=== PATIENT | male | born 1990 | race African-American/Black ===

== ENCOUNTER 2017-01-18 16:21 | Emergency (ER) | payer OTHER, SELFPAY ==
[~2017-01-18 16:21] MED LIST: /MOXI40TA PO; NO HISTORICAL MEDS; PERCOCET OR; SENO8.6T9 OR; albuterol MDI INH
[2017-01-18] MEDS ORDERED: ONDANSETRON 4MG/2ML VIAL (J2405) As Ordered ONE (18:16)
[2017-01-18] MEDS ORDERED: KETOROLAC 30 MG/ML VIAL (J1885) As Ordered ONE (18:16)
[2017-01-18 18:32] LABS: BASO % 0.2 % (0.0-1.0); EOS # 0.1 K/mm3 (0.0-0.50); EOS % 0.5 % (0.0-3.0); LARGE UNSTAINED CELL # 0.1 K/mm3 (0.0-0.4); LARGE UNSTAINED CELL % 0.8 % (0.0-4.0); LYMPH % 5.3 % (24.0-44.0); MEAN CORPUSCULAR HEMOGLOBIN 31.5 pg (27.0-33.0); MEAN CORPUSCULAR HGB CONC 34.1 g/dl (32.0-36.5); MEAN CORPUSCULAR VOLUME 92.5 fl (80.0-96.0); MONO # 1.1 K/mm3 (0.0-0.8); MONO % 6.3 % (0.0-5.0); NEUTROPHILS # 14.3 K/mm3 (1.8-7.7); NEUTROPHILS % 86.9 % (36.0-66.0); PLATELET COUNT, AUTOMATED 219 k/mm3 (150-450); RED CELL DISTRIBUTION WIDTH 11.7 % (11.5-14.5); WHITE BLOOD COUNT 16.5 K/mm3 (4.0-10.0)
[2017-01-18 18:36] LABS: CALCIUM OXALATE CRYSTALS LARGE
[2017-01-18 18:46] LABS: GLUCOSE, FASTING 111 MG/DL (70-105)
[2017-01-18 18:47] LABS: ALBUMIN 4.7 GM/DL (3.2-5.2); ALBUMIN/GLOBULIN RATIO 1.47 (1.00-1.93); ALKALINE PHOSPHATASE 57 U/L (45-117); ALT/SGPT 22 U/L (12-78); ANION GAP 11 MEQ/L (8-16); AST/SGOT 23 U/L (15-37); BILIRUBIN,DIRECT 0.2 MG/DL (0.0-0.2); BLOOD UREA NITROGEN 16 MG/DL (7-18); CARBON DIOXIDE LEVEL 25 MEQ/L (21-32); CHLORIDE LEVEL 103 MEQ/L (98-107); CREATININE FOR GFR 1.72 MG/DL (0.70-1.30); GLOMERULAR FILTRATION RATE > 60.0 (>60); POTASSIUM SERUM 3.4 MEQ/L (3.5-5.1); SODIUM LEVEL 139 MEQ/L (136-145); TOTAL PROTEIN 7.9 GM/DL (6.4-8.2)
--- NOTE | 2017-01-18 19:44 | REP ---
Clinical: Right flank pain. Comparison: None. Findings: Right kidney demonstrates edematous enlargement with hydroureteronephrosis which is likely secondary to obstruction by a distal ureteral calculus. However paucity of intraperitoneal fat and adjacent loops of bowel make distinction between scattered phleboliths and the actual obstructing calculus difficult to distinguish. Correlation with urinalysis is recommended. The left kidney/ureter appear relatively normal and there is no evidence for nephrolithiasis bilaterally. Liver, spleen, pancreas, gallbladder, and bilateral adrenal glands are normal for noncontrast examination. The enteric system is without obstruction or acute inflammatory process and a normal appendix is identified in the right lower quadrant. Collapsed bladder identified in the pelvis along with normal prostate/seminal vesicles and scattered phleboliths. No ascites. No free air. Abdominal aorta without aneurysm. Surrounding musculoskeletal structures are intact. Lung bases are clear. Impression: Edematous enlargement to the right kidney with hydroureteronephrosis. Actual obstructing calculus versus phlebolith cannot be distinguished due to paucity of intraperitoneal fat and surrounding loops of bowel making identification of the distal ureter nearly impossible. Signed by Woo Echevarria MD 01/18/2017 07:35 P
[2017-01-18] MEDS ORDERED: TAMSULOSIN 0.4 MG CAP As Ordered ONE (20:21)
[2017-01-18] MEDS ORDERED: NORCO 5/325MG TABLET (BULK) As Ordered ONE (20:21)
--- NOTE | 2017-01-18 20:40 | EDDOCDS ---
Nurse's Notes [facility] Name: Kenn Kumari Age: 26 yrs Sex: Male : 1990 Arrival Date: 01/18/2017 Time: 16:21 Bed I2 / M2 Private MD: Diagnosis: Calculus of ureter;Functional diarrhea Presentation: 01/18 16:28 Presenting complaint: Patient states: Patient reports woke up this morning with sharp jmb back pain and pain in his right lower side. Patient reports that pain radiates to testicular area. Risk factors: the patient reports not having a history of previous torsion. Adult Sepsis Screening: The patient does not have new or worsening altered mentation. Patient's respiratory rate is less than 22. Systolic blood pressure is greater than 100. Patient has a qSOFA score of 0- Negative Sepsis Screen. Suicide/Homicide risk assessment- the patient denies having any suicidal and/or homicidal ideations and does not present with any other emotional, behavioral or mental health complaints. 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 Transition of care: patient was not received from another setting of care. 16:28 Acuity: TAPAN Level 3 b 16:28 Method Of Arrival: Walkin/Carried/Asstd b Triage Assessment: 16:29 General: Appears in no apparent distress, Behavior is appropriate for age, cooperative. b Pain: Location: abdomen and pelvis Pain currently is 7 out of 10 on a pain scale. Pt Declines HIV testing. Neurological: Level of Consciousness is awake, alert, obeys commands, Oriented to person, place, time, Speech is normal, Facial symmetry appears normal, Facial symmetry: tongue is midline. Respiratory: Airway is patent Respiratory effort is even, unlabored, Respiratory pattern is regular, symmetrical. GI: Abdomen is non- distended. Derm: Skin is pink, warm & dry. Musculoskeletal: Range of motion intact in all extremities. Historical: - Allergies: No known drug Allergies; - Home Meds: 1. none - PMHx: none; - PSHx: none; - Social history: Smoking status: Patient uses tobacco products, heavy tobacco smoker. No barriers to communication noted, The patient speaks fluent German, Speaks appropriately for age. - Family history: Not pertinent. - : The pt / caregiver states he / she is not on anticoagulants. Home medication list is obtained from the patient. - Exposure Risk Screening:: None identified. Screenin:30 Screening information is obtained from the patient. Fall risk: No risks identified. js13 Assistance ADL's: requires no assistance with activities of daily living. Abuse/DV Screen: The patient / caregiver reports he/she is: not in a situation that causes fear, pain or injury. Nutritional screening: No deficits noted. Advance Directives: There is no active DNR order. home support is adequate. Assessment: 17:30 General: Appears in no apparent distress, comfortable, Behavior is appropriate for age, js13 cooperative. Pain: Location: abdomen. Neurological: Level of Consciousness is awake, alert. Respiratory: Airway is patent Respiratory effort is even, unlabored, Respiratory pattern is regular, symmetrical. GI: Abdomen is non- distended Abd is soft and non tender. Derm: Skin is normal. 18:26 General: Appears in no apparent distress, comfortable, Behavior is appropriate for age, kc3 cooperative. Pain: Location: abdomen. Neurological: Level of Consciousness is awake, alert, obeys commands, Oriented to person, place, time. Respiratory: Respiratory effort is even, unlabored. GI: Abdomen is non- distended Bowel sounds present X 4 quads. Abd is soft and non tender Reports diarrhea, nausea, vomiting. Derm: Skin is pink, warm & dry. Vital Signs: 16:24 BP 142 / 65 RA Sitting (auto/reg); Pulse 96; Resp 20; Temp 98.6; Pulse Ox 100% on R/A; d Weight 74.84 kg (R); Height 6 ft. 0 in. (182.88 cm); Pain 7/10; 20:35 BP 106 / 60; Pulse 95; Resp 16; Temp 97.8(O); Pulse Ox 96% on R/A; Pain 0/10; mf4 16:24 Body Mass Index 22.38 (74.84 kg, 182.88 cm) [facility] Vitals: 16:24 Log In Time: January 18, 2017 at 16:17. [facility] ED Course: 16:23 Patient visited by Zeyad Hawkins PCA. jrd 16:23 Patient moved to Waiting jrjuliet 16:26 Patient visited by Zeyad Hawkins PCA. jrd 16:26 Patient moved to Pre RCE jrd 16:29 Triage Initiated jmb 17:22 Patient moved to Triage 2 js13 17:30 The patient / caregiver is instructed regarding the plan of care and ED course. js13 17:31 Patient visited by Rossy Quinonez RN. js13 17:53 Mariano Granados PA is PHCP. mo1 17:53 Kim Tolbert MD is Attending Physician. mo1 17:59 Patient visited by Mariano Granados PA. mo1 18:02 Patient moved to I2 / M2 ar3 18:24 Inserted saline lock: 20 gauge in right antecubital area and blood collected. The kc3 patient tolerated the procedure well. 18:32 Patient visited by Joseline Fuentes RN. mk4 19:16 Patient visited by Joseline Fuentes RN. mk4 19:16 [facility] Payment Agreement was scanned into [email or web address] and attached to record. gjb 20:18 CT ABD & PELVIS: No Contrast Returned. EDMS 20:37 Discontinued lock. No procedures done that require assistance. mf4 Administered Medications: 18:25 Drug: NS 0.9% 1000 ml [sodium chloride 0.9 % intravenous solution] Route: IV; Rate: kc3 bolus; Site: right antecubital; 18:25 Drug: Ondansetron 4 mg [ondansetron HCl 2 mg/mL intravenous solution (2 mL)] Route: kc3 IVP; Site: right antecubital; 18:26 Drug: ketorolac 30 mg [ketorolac 30 mg/mL (1 mL) injection solution (1 mL)] Route: IVP; kc3 Site: right antecubital; 20:35 Drug: Tamsulosin 0.4 mg [tamsulosin 0.4 mg capsule (1 caps)] Route: PO; mf4 20:36 Drug: HYDROcodone-acetaminophen 4 pack- 1 packets [hydrocodone 5 mg-acetaminophen 325 mf4 mg tablet (1 tabs)] {Co-Signature: cynthia (Goldie Kramer LPN).} Route: PO; Order Results: Lab Order: Basic Metabolic Profile; SPEC'M 01/18/17 18:14 Test: GLUCOSE, FASTING; Value: 111; Range: 70-105; Abnormal: Above high normal; Units: MG/DL; Status: F Test: BLOOD UREA NITROGEN; Value: 16; Range: 7-18; Units: MG/DL; Status: F Test: CREATININE FOR GFR; Value: 1.72; Range: 0.70-1.30; Abnormal: Above high normal; Units: MG/DL; Status: F Test: GLOMERULAR FILTRATION RATE; Value: > 60.0; Range: >60; Status: F Test: SODIUM LEVEL; Value: 139; Range: 136-145; Units: MEQ/L; Status: F Test: POTASSIUM SERUM; Value: 3.4; Range: 3.5-5.1; Abnormal: Below low normal; Units: MEQ/L; Status: F Test: CHLORIDE LEVEL; Value: 103; Range: 98-107; Units: MEQ/L; Status: F Test: CARBON DIOXIDE LEVEL; Value: 25; Range: 21-32; Units: MEQ/L; Status: F Test: ANION GAP; Value: 11; Range: 8-16; Units: MEQ/L; Status: F Test: CALCIUM LEVEL; Value: 10.0; Range: 8.5-10.1; Units: MG/DL; Status: F Test Note: ; Units are mL/min/1.73 m2 Chronic Kidney Disease Staging per NKF: Stage I & II GFR >=60 Normal to Mildly Decreased Stage III GFR 30-59 Moderately Decreased Stage IV GFR 15-29 Severely Decreased Stage V GFR <15 Very Little GFR Left ESRD GFR <15 on MOVIE EDITOR Lab Order: CBC with Diff; SPEC'M 01/18/17 18:14 Test: WHITE BLOOD COUNT; Value: 16.5; Range: 4.0-10.0; Abnormal: Above high normal; Units: K/mm3; Status: F Test: RED BLOOD COUNT; Value: 5.26; Range: 4.30-6.10; Units: M/mm3; Status: F Test: HEMOGLOBIN; Value: 16.6; Range: 14.0-18.0; Units: g/dl; Status: F Test: HEMATOCRIT; Value: 48.7; Range: 42.0-52.0; Units: %; Status: F Test: MEAN CORPUSCULAR VOLUME; Value: 92.5; Range: 80.0-96.0; Units: fl; Status: F Test: MEAN CORPUSCULAR HEMOGLOBIN; Value: 31.5; Range: 27.0-33.0; Units: pg; Status: F Test: MEAN CORPUSCULAR HGB CONC; Value: 34.1; Range: 32.0-36.5; Units: g/dl; Status: F Test: RED CELL DISTRIBUTION WIDTH; Value: 11.7; Range: 11.5-14.5; Units: %; Status: F Test: PLATELET COUNT, AUTOMATED; Value: 219; Range: 150-450; Units: k/mm3; Status: F Test: NEUTROPHILS %; Value: 86.9; Range: 36.0-66.0; Abnormal: Above high normal; Units: %; Status: F Test: LYMPH %; Value: 5.3; Range: 24.0-44.0; Abnormal: Below low normal; Units: %; Status: F Test: MONO %; Value: 6.3; Range: 0.0-5.0; Abnormal: Above high normal; Units: %; Status: F Test: EOS %; Value: 0.5; Range: 0.0-3.0; Units: %; Status: F Test: BASO %; Value: 0.2; Range: 0.0-1.0; Units: %; Status: F Test: LARGE UNSTAINED CELL %; Value: 0.8; Range: 0.0-4.0; Units: %; Status: F Test: NEUTROPHILS #; Value: 14.3; Range: 1.8-7.7; Abnormal: Above high normal; Units: K/mm3; Status: F Test: LYMPH #; Value: 1.0; Range: 1.5-6.5; Abnormal: Below low normal; Units: K/mm3; Status: F Test: MONO #; Value: 1.1; Range: 0.0-0.8; Abnormal: Above high normal; Units: K/mm3; Status: F Test: EOS #; Value: 0.1; Range: 0.0-0.50; Units: K/mm3; Status: F Test: BASO #; Value: 0.0; Range: 0.0-0.2; Units: K/mm3; Status: F Test: LARGE UNSTAINED CELL #; Value: 0.1; Range: 0.0-0.4; Units: K/mm3; Status: F Lab Order: Lipase; SPEC'M 01/18/17 18:14 Test: LIPASE; Value: 118; Range: 73-393; Units: U/L; Status: F Lab Order: Liver Profile; [facility] 01/18/17 18:14 Test: AST/SGOT; Value: 23; Range: 15-37; Units: U/L; Status: F Test: ALT/SGPT; Value: 22; Range: 12-78; Units: U/L; Status: F Test: ALKALINE PHOSPHATASE; Value: 57; Range: 45-117; Units: U/L; Status: F Test: BILIRUBIN,TOTAL; Value: 1.0; Range: 0.2-1.0; Units: MG/DL; Status: F Test: BILIRUBIN,DIRECT; Value: 0.2; Range: 0.0-0.2; Units: MG/DL; Status: F Test: TOTAL PROTEIN; Value: 7.9; Range: 6.4-8.2; Units: GM/DL; Status: F Test: ALBUMIN; Value: 4.7; Range: 3.2-5.2; Units: GM/DL; Status: F Test: ALBUMIN/GLOBULIN RATIO; Value: 1.47; Range: 1.00-1.93; Status: F Lab Order: Urinalysis; [facility] 01/18/17 18:02 Test: APPEARANCE, URINE; Value: CLOUDY; Range: CLEAR; Abnormal: Above high normal; Status: F Test: COLOR, URINE; Value: YELLOW; Range: YELLOW; Status: F Test: PH,URINE; Value: 6.0; Range: 5.0-9.0; Units: UNITS; Status: F Test: SPECIFIC GRAVITY URINE AUTO; Value: 1.031; Range: 1.002-1.035; Status: F Test: PROTEIN, URINE AUTO; Value: 1+; Range: NEGATIVE; Abnormal: Above high normal; Units: mg/dL; Status: F Test: GLUCOSE, URINE (UA) AUTO; Value: NEGATIVE; Range: NEGATIVE; Units: mg/dL; Status: F Test: KETONE, URINE AUTO; Value: 2+; Range: NEGATIVE; Abnormal: Above high normal; Units: mg/dL; Status: F Test: UROBILINOGEN, URINE AUTO; Value: 0.2; Range: 0.0-2.0; Units: mg/dL; Status: F Test: BILIRUBIN, URINE AUTO; Value: NEGATIVE; Range: NEGATIVE; Status: F Test: NITRITE, URINE AUTO; Value: NEGATIVE; Range: NEGATIVE; Status: F Test: LEUKOCYTE ESTERASE, URINE AUTO; Value: NEGATIVE; Range: NEGATIVE; Status: F Test: BLOOD, URINE BLOOD; Value: 1+; Range: NEGATIVE; Abnormal: Above high normal; Status: F Test: WBC, URINE AUTO; Value: 3; Range: 0-3; Units: /HPF; Status: F Test: RBC, URINE AUTO; Value: 6; Range: 0-3; Abnormal: Above high normal; Units: /HPF; Status: F Test: BACTERIA, URINE AUTO; Value: 1+; Range: NEGATIVE; Abnormal: Above high normal; Status: F Test: SQUAMOUS EPITHELIAL CELL UR AU; Value: 1; Range: 0-6; Units: /HPF; Status: F Test: MUCUS, URINE; Value: LARGE; Range: NEGATIVE; Status: F Test: HYALINE CAST, URINE AUTO; Value: 0; Range: 0-1; Units: /LPF; Status: F Test: CALCIUM OXALATE CRYSTALS; Value: LARGE; Range: NONE; Status: F Radiology Order: CT ABD & PELVIS: No Contrast Test: CT ABD & PELVIS: No Contrast REASON FOR EXAMINATION: Renal colic; Clinical: Right flank pain.; ; Comparison: None.; ; Findings:; Right kidney demonstrates edematous enlargement with hydroureteronephrosis which; is likely secondary to obstruction by a distal ureteral calculus. However; paucity of intraperitoneal fat and adjacent loops of bowel make distinction; between scattered phleboliths and the actual obstructing calculus difficult to; distinguish. Correlation with urinalysis is recommended. The left kidney/ureter; appear relatively normal and there is no evidence for nephrolithiasis; bilaterally.; ; Liver, spleen, pancreas, gallbladder, and bilateral adrenal glands are normal for; noncontrast examination. The enteric system is without obstruction or acute; inflammatory process and a normal appendix is identified in the right lower; quadrant. Collapsed bladder identified in the pelvis along with normal; prostate/seminal vesicles and scattered phleboliths. No ascites. No free air.; Abdominal aorta without aneurysm. Surrounding musculoskeletal structures are; intact. Lung bases are clear.; ; Impression:; Edematous enlargement to the right kidney with hydroureteronephrosis. Actual; obstructing calculus versus phlebolith cannot be distinguished due to paucity of; intraperitoneal fat and surrounding loops of bowel making identification of the; distal ureter nearly impossible.; ; ; Signed by; Woo Echevarria MD 01/18/2017 07:35 P; Outcome: 20:14 Discharge ordered by Provider. mo1 20:37 Discharge Assessment: Patient awake, alert and oriented x 3. No cognitive and/or mf4 functional deficits noted. Patient verbalized understanding of disposition instructions. patient administered narcotics - no. The following High Risk Discharge criteria are identified: None. Discharged to home ambulatory, with friend. Condition: stable Condition: improved. Discharge instructions given to patient, Instructed on discharge instructions, follow up and referral plans. medication usage, Demonstrated understanding of medications, Prescriptions given X efiled to [facility]. CT Study completed. Property sent home with patient. 20:39 Patient left the ED. mf4 Signatures: Dispatcher [employer] EDMS Tejal Ying, HIGH SCHOOL SOCIAL STUDIES TEACHER HIGH SCHOOL SOCIAL STUDIES TEACHER ar3 Jose Middleton,LAURA DICE MANAGER mf4 Rossy Quinonez,RN RN js13 Mariano Granados PA PA mo1 Paresh VuongRN RN Joseline Pierce RN RN mk4 Zeyad Hawkins, HIGH SCHOOL SOCIAL STUDIES TEACHER HIGH SCHOOL SOCIAL STUDIES TEACHER Cesilia GiordanoRN RN alissa3 Caroline Paredes LPN [facility] Corrections: (The following items were deleted from the chart) 18:27 18:24 Inserted saline lock: kc3 kc3 MTDD
--- NOTE | 2017-01-18 20:40 | EDDOCDS ---
Physician Documentation [facility] Name: Kenn Kumari Age: 26 yrs Sex: Male : 1990 Arrival Date: 01/18/2017 Time: 16:21 Bed I2 / M2 Private MD: Disposition: 01/18/17 20:14 Discharged to Home/Self Care. Impression: Calculus of ureter, Functional diarrhea. - Condition is Stable. - Discharge Instructions: Food Choices to Help Relieve Diarrhea, Adult, Dehydration, Adult, Kidney Stones. - Prescriptions for [place] 5- 325 mg Oral Tablet - take 1 tablet by ORAL route every 6 hours As needed MDD: 4 tabs; 20 tablet. Flomax 0.4 mg Oral Capsule, Sust. Release 24 hr - take 1 capsule by ORAL route once daily 1/2 hour following the same meal each day; 30 capsule. ZOFRAN ODT 4 mg - dissolve 1 tablet by ORAL route 4 times per day As needed do not chew, do not swallow whole; 10 tablet. - Medication Reconciliation, Local Pharmacy Hours, Work Release Form - 3 day form. - Follow up: Private Physician; When: Call to arrange an appointment; Reason: Recheck today's complaints, Continuance of care. - Problem is new. - Symptoms have improved. Historical: - Allergies: No known drug Allergies; - Home Meds: 1. none - PMHx: none; - PSHx: none; - Social history: Smoking status: Patient uses tobacco products, heavy tobacco smoker. No barriers to communication noted, The patient speaks fluent [place], Speaks appropriately for age. - Family history: Not pertinent. - : The pt / caregiver states he / she is not on anticoagulants. Home medication list is obtained from the patient. - Exposure Risk Screening:: None identified. Vital Signs: 01/18 16:24 BP 142 / 65 RA Sitting (auto/reg); Pulse 96; Resp 20; Temp 98.6; Pulse Ox 100% on R/A; jrd Weight 74.84 kg / 164.99 lbs (R); Height 6 ft. 0 in. (182.88 cm); Pain 7/10; 20:35 BP 106 / 60; Pulse 95; Resp 16; Temp 97.8(O); Pulse Ox 96% on R/A; Pain 0/10; mf4 16:24 Body Mass Index 22.38 (74.84 kg, 182.88 cm) jrd MDM: 17:59 NS 0.9% 1000 ml IV at bolus once ordered. mo1 17:59 Ondansetron 4 mg IVP once ordered. mo1 17:59 ketorolac 30 mg IVP once ordered. mo1 17:59 IV Saline Lock ordered. mo1 17:59 Undress patient appropriately for examination ordered. mo1 18:00 Basic Metabolic Profile Ordered. EDMS 18:00 CBC with Diff Ordered. EDMS 18:00 Lipase Ordered. EDMS 18:00 Liver Profile Ordered. EDMS 18:00 Urinalysis Ordered. EDMS 18:00 NOTHING BY MOUTH+DIET ordered. EDMS 18:46 CBC with Diff Reviewed. mo1 18:46 Urinalysis Reviewed. mo1 18:52 Basic Metabolic Profile Reviewed. mo1 18:52 Lipase Reviewed. mo1 18:53 Liver Profile Reviewed. mo1 18:58 Financial registration complete. gjb 19:08 CT ABD & PELVIS: No Contrast Ordered. EDMS 19:16 [facility] Payment Agreement was scanned into [employer] and attached to record. gjb 20:14 Tamsulosin Extended Release 24 hour Capsule 0.4 mg PO once ordered. mo1 20:14 HYDROcodone-acetaminophen 4 pack- 5 mg-325 mg 1 packets PO Per package directions; mo1 Dispense with patient. 1 po q4h prn for pain ordered. Administered Medications: 18:25 Drug: NS 0.9% 1000 ml [sodium chloride 0.9 % intravenous solution] Route: IV; Rate: kc3 bolus; Site: right antecubital; 18:25 Drug: Ondansetron 4 mg [ondansetron HCl 2 mg/mL intravenous solution (2 mL)] Route: kc3 IVP; Site: right antecubital; 18:26 Drug: ketorolac 30 mg [ketorolac 30 mg/mL (1 mL) injection solution (1 mL)] Route: IVP; kc3 Site: right antecubital; 20:35 Drug: Tamsulosin 0.4 mg [tamsulosin 0.4 mg capsule (1 caps)] Route: PO; mf4 20:36 Drug: HYDROcodone-acetaminophen 4 pack- 1 packets [hydrocodone 5 mg-acetaminophen 325 mf4 mg tablet (1 tabs)] {Co-Signature: slm (Goldie Kramer LOGISTICS AND PLANNING MANAGER).} Route: PO; Signatures: Dispatcher [employer] EDMS Jose Middleton,LAURA SANCHEZ mf4 Rossy Quinonez,RN RN js13 Mariano Granados PA PA mo1 Paresh Vuong RN RN jmb Beck, Gabriela gjb Crane, Kelsi RN kc3 Goldie marie The chart was reviewed and I authenticate all verbal orders and agree with the evaluation and treatment provided.Corrections: (The following items were deleted from the chart) 19:10 18:57 CT ABD & PELVIS WITH CONTRAST+CT ordered. EDMS EDMS Attachments: 19:16 [facility] [place] Agreement loyda MTDD
--- NOTE | 2017-01-20 21:41 | EDDOCDS ---
Physician Documentation [facility] Name: Kenn Kumari Age: 26 yrs Sex: Male : 1990 Arrival Date: 01/18/2017 Time: 16:21 Bed I2 / M2 Private MD: Disposition: 01/18/17 20:14 Discharged to Home/Self Care. Impression: Calculus of ureter, Functional diarrhea. - Condition is Stable. - Discharge Instructions: Food Choices to Help Relieve Diarrhea, Adult, Dehydration, Adult, Kidney Stones. - Prescriptions for [place] 5- 325 mg Oral Tablet - take 1 tablet by ORAL route every 6 hours As needed MDD: 4 tabs; 20 tablet. Flomax 0.4 mg Oral Capsule, Sust. Release 24 hr - take 1 capsule by ORAL route once daily 1/2 hour following the same meal each day; 30 capsule. ZOFRAN ODT 4 mg - dissolve 1 tablet by ORAL route 4 times per day As needed do not chew, do not swallow whole; 10 tablet. - Medication Reconciliation, Local Pharmacy Hours, Work Release Form - 3 day form. - Follow up: Private Physician; When: Call to arrange an appointment; Reason: Recheck today's complaints, Continuance of care. - Problem is new. - Symptoms have improved. Historical: - Allergies: No known drug Allergies; - Home Meds: 1. none - PMHx: none; - PSHx: none; - Social history: Smoking status: Patient uses tobacco products, heavy tobacco smoker. No barriers to communication noted, The patient speaks fluent [place]une[place], Speaks appropriately for age. - Family history: Not pertinent. - : The pt / caregiver states he / she is not on anticoagulants. Home medication list is obtained from the patient. - Exposure Risk Screening:: None identified. Vital Signs: 01/18 16:24 BP 142 / 65 RA Sitting (auto/reg); Pulse 96; Resp 20; Temp 98.6; Pulse Ox 100% on R/A; jrd Weight 74.84 kg / 164.99 lbs (R); Height 6 ft. 0 in. (182.88 cm); Pain 7/10; 20:35 BP 106 / 60; Pulse 95; Resp 16; Temp 97.8(O); Pulse Ox 96% on R/A; Pain 0/10; mf4 16:24 Body Mass Index 22.38 (74.84 kg, 182.88 cm) jrd MDM: 17:59 NS 0.9% 1000 ml IV at bolus once ordered. mo1 17:59 Ondansetron 4 mg IVP once ordered. mo1 17:59 ketorolac 30 mg IVP once ordered. mo1 17:59 IV Saline Lock ordered. mo1 17:59 Undress patient appropriately for examination ordered. mo1 18:00 Basic Metabolic Profile Ordered. EDMS 18:00 CBC with Diff Ordered. EDMS 18:00 Lipase Ordered. EDMS 18:00 Liver Profile Ordered. EDMS 18:00 Urinalysis Ordered. EDMS 18:00 NOTHING BY MOUTH+DIET ordered. EDMS 18:46 CBC with Diff Reviewed. mo1 18:46 Urinalysis Reviewed. mo1 18:52 Basic Metabolic Profile Reviewed. mo1 18:52 Lipase Reviewed. mo1 18:53 Liver Profile Reviewed. mo1 18:58 Financial registration complete. gjb 19:08 CT ABD & PELVIS: No Contrast Ordered. EDMS 19:16 [facility] Payment Agreement was scanned into [employer] and attached to record. gjb 20:14 Tamsulosin Extended Release 24 hour Capsule 0.4 mg PO once ordered. mo1 20:14 HYDROcodone-acetaminophen 4 pack- 5 mg-325 mg 1 packets PO Per package directions; mo1 Dispense with patient. 1 po q4h prn for pain ordered. 01/19 10:18 T-Sheet-- Draft Copy was scanned into [employer] and attached to record. gb 10:19 Radiology Report was scanned into [employer] and attached to record. gb Administered Medications: 01/18 18:25 Drug: NS 0.9% 1000 ml [sodium chloride 0.9 % intravenous solution] Route: IV; Rate: kc3 bolus; Site: right antecubital; 18:25 Drug: Ondansetron 4 mg [ondansetron HCl 2 mg/mL intravenous solution (2 mL)] Route: kc3 IVP; Site: right antecubital; 18:26 Drug: ketorolac 30 mg [ketorolac 30 mg/mL (1 mL) injection solution (1 mL)] Route: IVP; kc3 Site: right antecubital; 20:35 Drug: Tamsulosin 0.4 mg [tamsulosin 0.4 mg capsule (1 caps)] Route: PO; mf4 20:36 Drug: HYDROcodone-acetaminophen 4 pack- 1 packets [hydrocodone 5 mg-acetaminophen 325 mf4 mg tablet (1 tabs)] {Co-Signature: slm (Goldie Kramer LPN).} Route: PO; Signatures: Dispatcher [employer] EDMS Brooke Sanchez, Reg Reg gb Jose Middleton,LAURA HOP GROWER mf4 Rossy Quinonez,RN RN js13 Mariano Granados PA PA mo1 Paresh Vuong, RN RN Caroline Carroll Kelsi RN kc3 Goldie marie The chart was reviewed and I authenticate all verbal orders and agree with the evaluation and treatment provided.Corrections: (The following items were deleted from the chart) 19:10 18:57 CT ABD & PELVIS WITH CONTRAST+CT ordered. EDMS EDMS Attachments: 19:16 [facility] Payment Agreement [facility] 01/19 10:18 T-Sheet-- Draft Copy gb Chart Complete MTDD
--- NOTE | 2017-01-20 21:41 | EDDOCDS ---
Nurse's Notes [facility] Name: Kenn Kumari Age: 26 yrs Sex: Male : 1990 Arrival Date: 01/18/2017 Time: 16:21 Bed I2 / M2 Private MD: Diagnosis: Calculus of ureter;Functional diarrhea Presentation: 01/18 16:28 Presenting complaint: Patient states: Patient reports woke up this morning with sharp jmb back pain and pain in his right lower side. Patient reports that pain radiates to testicular area. Risk factors: the patient reports not having a history of previous torsion. Adult Sepsis Screening: The patient does not have new or worsening altered mentation. Patient's respiratory rate is less than 22. Systolic blood pressure is greater than 100. Patient has a qSOFA score of 0- Negative Sepsis Screen. Suicide/Homicide risk assessment- the patient denies having any suicidal and/or homicidal ideations and does not present with any other emotional, behavioral or mental health complaints. Status: Patient is not a room service clerk or dependent. Transition of care: patient was not received from another setting of care. 16:28 Acuity: TAPAN Level 3 b 16:28 Method Of Arrival: Walkin/Carried/Asstd b Triage Assessment: 16:29 General: Appears in no apparent distress, Behavior is appropriate for age, cooperative. b Pain: Location: abdomen and pelvis Pain currently is 7 out of 10 on a pain scale. Pt Declines HIV testing. Neurological: Level of Consciousness is awake, alert, obeys commands, Oriented to person, place, time, Speech is normal, Facial symmetry appears normal, Facial symmetry: tongue is midline. Respiratory: Airway is patent Respiratory effort is even, unlabored, Respiratory pattern is regular, symmetrical. GI: Abdomen is non- distended. Derm: Skin is pink, warm & dry. Musculoskeletal: Range of motion intact in all extremities. Historical: - Allergies: No known drug Allergies; - Home Meds: 1. none - PMHx: none; - PSHx: none; - Social history: Smoking status: Patient uses tobacco products, heavy tobacco smoker. No barriers to communication noted, The patient speaks fluent Syriac, Speaks appropriately for age. - Family history: Not pertinent. - : The pt / caregiver states he / she is not on anticoagulants. Home medication list is obtained from the patient. - Exposure Risk Screening:: None identified. Screenin:30 Screening information is obtained from the patient. Fall risk: No risks identified. js13 Assistance ADL's: requires no assistance with activities of daily living. Abuse/DV Screen: The patient / caregiver reports he/she is: not in a situation that causes fear, pain or injury. Nutritional screening: No deficits noted. Advance Directives: There is no active DNR order. home support is adequate. Assessment: 17:30 General: Appears in no apparent distress, comfortable, Behavior is appropriate for age, js13 cooperative. Pain: Location: abdomen. Neurological: Level of Consciousness is awake, alert. Respiratory: Airway is patent Respiratory effort is even, unlabored, Respiratory pattern is regular, symmetrical. GI: Abdomen is non- distended Abd is soft and non tender. Derm: Skin is normal. 18:26 General: Appears in no apparent distress, comfortable, Behavior is appropriate for age, kc3 cooperative. Pain: Location: abdomen. Neurological: Level of Consciousness is awake, alert, obeys commands, Oriented to person, place, time. Respiratory: Respiratory effort is even, unlabored. GI: Abdomen is non- distended Bowel sounds present X 4 quads. Abd is soft and non tender Reports diarrhea, nausea, vomiting. Derm: Skin is pink, warm & dry. Vital Signs: 16:24 BP 142 / 65 RA Sitting (auto/reg); Pulse 96; Resp 20; Temp 98.6; Pulse Ox 100% on R/A; d Weight 74.84 kg (R); Height 6 ft. 0 in. (182.88 cm); Pain 7/10; 20:35 BP 106 / 60; Pulse 95; Resp 16; Temp 97.8(O); Pulse Ox 96% on R/A; Pain 0/10; mf4 16:24 Body Mass Index 22.38 (74.84 kg, 182.88 cm) [facility] Vitals: 16:24 Log In Time: January 18, 2017 at 16:17. [facility] ED Course: 16:23 Patient visited by Zeyad Hawkins PCA. jrd 16:23 Patient moved to Waiting jrjuliet 16:26 Patient visited by Zeyad Hawkins PCA. jrd 16:26 Patient moved to Pre RCE jrd 16:29 Triage Initiated jmb 17:22 Patient moved to Triage 2 js13 17:30 The patient / caregiver is instructed regarding the plan of care and ED course. js13 17:31 Patient visited by Rossy Quinonez RN. js13 17:53 Mariano Granados PA is PHCP. mo1 17:53 Kim Tolbert MD is Attending Physician. mo1 17:59 Patient visited by Mariano Granados PA. mo1 18:02 Patient moved to I2 / M2 ar3 18:24 Inserted saline lock: 20 gauge in right antecubital area and blood collected. The kc3 patient tolerated the procedure well. 18:32 Patient visited by Joseline Fuentes RN. mk4 19:16 Patient visited by Joseline Fuentes RN. mk4 19:16 [facility] Payment Agreement was scanned into [employer] and attached to record. gjb 20:18 CT ABD & PELVIS: No Contrast Returned. EDMS 20:37 Discontinued lock. No procedures done that require assistance. mf4 01/19 10:18 T-Sheet-- Draft Copy was scanned into [employer] and attached to record. gb 10:19 Radiology Report was scanned into [employer] and attached to record. gb Administered Medications: 01/18 18:25 Drug: NS 0.9% 1000 ml [sodium chloride 0.9 % intravenous solution] Route: IV; Rate: kc3 bolus; Site: right antecubital; 18:25 Drug: Ondansetron 4 mg [ondansetron HCl 2 mg/mL intravenous solution (2 mL)] Route: kc3 IVP; Site: right antecubital; 18:26 Drug: ketorolac 30 mg [ketorolac 30 mg/mL (1 mL) injection solution (1 mL)] Route: IVP; kc3 Site: right antecubital; 20:35 Drug: Tamsulosin 0.4 mg [tamsulosin 0.4 mg capsule (1 caps)] Route: PO; mf4 20:36 Drug: HYDROcodone-acetaminophen 4 pack- 1 packets [hydrocodone 5 mg-acetaminophen 325 mf4 mg tablet (1 tabs)] {Co-Signature: slm (Goldie Kramer LPN).} Route: PO; Order Results: Lab Order: Basic Metabolic Profile; SPEC'M 01/18/17 18:14 Test: GLUCOSE, FASTING; Value: 111; Range: 70-105; Abnormal: Above high normal; Units: MG/DL; Status: F Test: BLOOD UREA NITROGEN; Value: 16; Range: 7-18; Units: MG/DL; Status: F Test: CREATININE FOR GFR; Value: 1.72; Range: 0.70-1.30; Abnormal: Above high normal; Units: MG/DL; Status: F Test: GLOMERULAR FILTRATION RATE; Value: > 60.0; Range: >60; Status: F Test: SODIUM LEVEL; Value: 139; Range: 136-145; Units: MEQ/L; Status: F Test: POTASSIUM SERUM; Value: 3.4; Range: 3.5-5.1; Abnormal: Below low normal; Units: MEQ/L; Status: F Test: CHLORIDE LEVEL; Value: 103; Range: 98-107; Units: MEQ/L; Status: F Test: CARBON DIOXIDE LEVEL; Value: 25; Range: 21-32; Units: MEQ/L; Status: F Test: ANION GAP; Value: 11; Range: 8-16; Units: MEQ/L; Status: F Test: CALCIUM LEVEL; Value: 10.0; Range: 8.5-10.1; Units: MG/DL; Status: F Test Note: ; Units are mL/min/1.73 m2 Chronic Kidney Disease Staging per NKF: Stage I & II GFR >=60 Normal to Mildly Decreased Stage III GFR 30-59 Moderately Decreased Stage IV GFR 15-29 Severely Decreased Stage V GFR <15 Very Little GFR Left ESRD GFR <15 on [employer] Lab Order: CBC with Diff; SPEC'M 01/18/17 18:14 Test: WHITE BLOOD COUNT; Value: 16.5; Range: 4.0-10.0; Abnormal: Above high normal; Units: K/mm3; Status: F Test: RED BLOOD COUNT; Value: 5.26; Range: 4.30-6.10; Units: M/mm3; Status: F Test: HEMOGLOBIN; Value: 16.6; Range: 14.0-18.0; Units: g/dl; Status: F Test: HEMATOCRIT; Value: 48.7; Range: 42.0-52.0; Units: %; Status: F Test: MEAN CORPUSCULAR VOLUME; Value: 92.5; Range: 80.0-96.0; Units: fl; Status: F Test: MEAN CORPUSCULAR HEMOGLOBIN; Value: 31.5; Range: 27.0-33.0; Units: pg; Status: F Test: MEAN CORPUSCULAR HGB CONC; Value: 34.1; Range: 32.0-36.5; Units: g/dl; Status: F Test: RED CELL DISTRIBUTION WIDTH; Value: 11.7; Range: 11.5-14.5; Units: %; Status: F Test: PLATELET COUNT, AUTOMATED; Value: 219; Range: 150-450; Units: k/mm3; Status: F Test: NEUTROPHILS %; Value: 86.9; Range: 36.0-66.0; Abnormal: Above high normal; Units: %; Status: F Test: LYMPH %; Value: 5.3; Range: 24.0-44.0; Abnormal: Below low normal; Units: %; Status: F Test: MONO %; Value: 6.3; Range: 0.0-5.0; Abnormal: Above high normal; Units: %; Status: F Test: EOS %; Value: 0.5; Range: 0.0-3.0; Units: %; Status: F Test: BASO %; Value: 0.2; Range: 0.0-1.0; Units: %; Status: F Test: LARGE UNSTAINED CELL %; Value: 0.8; Range: 0.0-4.0; Units: %; Status: F Test: NEUTROPHILS #; Value: 14.3; Range: 1.8-7.7; Abnormal: Above high normal; Units: K/mm3; Status: F Test: LYMPH #; Value: 1.0; Range: 1.5-6.5; Abnormal: Below low normal; Units: K/mm3; Status: F Test: MONO #; Value: 1.1; Range: 0.0-0.8; Abnormal: Above high normal; Units: K/mm3; Status: F Test: EOS #; Value: 0.1; Range: 0.0-0.50; Units: K/mm3; Status: F Test: BASO #; Value: 0.0; Range: 0.0-0.2; Units: K/mm3; Status: F Test: LARGE UNSTAINED CELL #; Value: 0.1; Range: 0.0-0.4; Units: K/mm3; Status: F Lab Order: Lipase; [facility] 01/18/17 18:14 Test: LIPASE; Value: 118; Range: 73-393; Units: U/L; Status: F Lab Order: Liver Profile; [facility] 01/18/17 18:14 Test: AST/SGOT; Value: 23; Range: 15-37; Units: U/L; Status: F Test: ALT/SGPT; Value: 22; Range: 12-78; Units: U/L; Status: F Test: ALKALINE PHOSPHATASE; Value: 57; Range: 45-117; Units: U/L; Status: F Test: BILIRUBIN,TOTAL; Value: 1.0; Range: 0.2-1.0; Units: MG/DL; Status: F Test: BILIRUBIN,DIRECT; Value: 0.2; Range: 0.0-0.2; Units: MG/DL; Status: F Test: TOTAL PROTEIN; Value: 7.9; Range: 6.4-8.2; Units: GM/DL; Status: F Test: ALBUMIN; Value: 4.7; Range: 3.2-5.2; Units: GM/DL; Status: F Test: ALBUMIN/GLOBULIN RATIO; Value: 1.47; Range: 1.00-1.93; Status: F Lab Order: Urinalysis; [facility] 01/18/17 18:02 Test: APPEARANCE, URINE; Value: CLOUDY; Range: CLEAR; Abnormal: Above high normal; Status: F Test: COLOR, URINE; Value: YELLOW; Range: YELLOW; Status: F Test: PH,URINE; Value: 6.0; Range: 5.0-9.0; Units: UNITS; Status: F Test: SPECIFIC GRAVITY URINE AUTO; Value: 1.031; Range: 1.002-1.035; Status: F Test: PROTEIN, URINE AUTO; Value: 1+; Range: NEGATIVE; Abnormal: Above high normal; Units: mg/dL; Status: F Test: GLUCOSE, URINE (UA) AUTO; Value: NEGATIVE; Range: NEGATIVE; Units: mg/dL; Status: F Test: KETONE, URINE AUTO; Value: 2+; Range: NEGATIVE; Abnormal: Above high normal; Units: mg/dL; Status: F Test: UROBILINOGEN, URINE AUTO; Value: 0.2; Range: 0.0-2.0; Units: mg/dL; Status: F Test: BILIRUBIN, URINE AUTO; Value: NEGATIVE; Range: NEGATIVE; Status: F Test: NITRITE, URINE AUTO; Value: NEGATIVE; Range: NEGATIVE; Status: F Test: LEUKOCYTE ESTERASE, URINE AUTO; Value: NEGATIVE; Range: NEGATIVE; Status: F Test: BLOOD, URINE BLOOD; Value: 1+; Range: NEGATIVE; Abnormal: Above high normal; Status: F Test: WBC, URINE AUTO; Value: 3; Range: 0-3; Units: /HPF; Status: F Test: RBC, URINE AUTO; Value: 6; Range: 0-3; Abnormal: Above high normal; Units: /HPF; Status: F Test: BACTERIA, URINE AUTO; Value: 1+; Range: NEGATIVE; Abnormal: Above high normal; Status: F Test: SQUAMOUS EPITHELIAL CELL UR AU; Value: 1; Range: 0-6; Units: /HPF; Status: F Test: MUCUS, URINE; Value: LARGE; Range: NEGATIVE; Status: F Test: HYALINE CAST, URINE AUTO; Value: 0; Range: 0-1; Units: /LPF; Status: F Test: CALCIUM OXALATE CRYSTALS; Value: LARGE; Range: NONE; Status: F Radiology Order: CT ABD & PELVIS: No Contrast Test: CT ABD & PELVIS: No Contrast REASON FOR EXAMINATION: Renal colic; Clinical: Right flank pain.; ; Comparison: None.; ; Findings:; Right kidney demonstrates edematous enlargement with hydroureteronephrosis which; is likely secondary to obstruction by a distal ureteral calculus. However; paucity of intraperitoneal fat and adjacent loops of bowel make distinction; between scattered phleboliths and the actual obstructing calculus difficult to; distinguish. Correlation with urinalysis is recommended. The left kidney/ureter; appear relatively normal and there is no evidence for nephrolithiasis; bilaterally.; ; Liver, spleen, pancreas, gallbladder, and bilateral adrenal glands are normal for; noncontrast examination. The enteric system is without obstruction or acute; inflammatory process and a normal appendix is identified in the right lower; quadrant. Collapsed bladder identified in the pelvis along with normal; prostate/seminal vesicles and scattered phleboliths. No ascites. No free air.; Abdominal aorta without aneurysm. Surrounding musculoskeletal structures are; intact. Lung bases are clear.; ; Impression:; Edematous enlargement to the right kidney with hydroureteronephrosis. Actual; obstructing calculus versus phlebolith cannot be distinguished due to paucity of; intraperitoneal fat and surrounding loops of bowel making identification of the; distal ureter nearly impossible.; ; ; Signed by; Woo Echevarria MD 01/18/2017 07:35 P; Outcome: 20:14 Discharge ordered by Provider. mo1 20:37 Discharge Assessment: Patient awake, alert and oriented x 3. No cognitive and/or mf4 functional deficits noted. Patient verbalized understanding of disposition instructions. patient administered narcotics - no. The following High Risk Discharge criteria are identified: None. Discharged to home ambulatory, with friend. Condition: stable Condition: improved. Discharge instructions given to patient, Instructed on discharge instructions, follow up and referral plans. medication usage, Demonstrated understanding of medications, Prescriptions given X efiled to [facility]. CT Study completed. Property sent home with patient. 20:39 Patient left the ED. mf4 Signatures: Dispatcher [employer] EDMS Yulissa Sanchezria, Reg Reg gb Deonna, Tejal, LINUX KERNEL DEVELOPER LINUX KERNEL DEVELOPER ar3 Jose Middleton,LAURA YIELD ENGINEER mf4 Rossy Quinonez,RN RN js13 Mariano Granados PA PA mo1 Paresh Vuong RN Joseline Pitts RN RN mk4 Zeyad Hawkins, LINUX KERNEL DEVELOPER LINUX KERNEL DEVELOPER d Cesilia Pack RN RN kc3 Beck, Gabriela gjb Stephanie McIntyre YIELD ENGINEER [facility] Corrections: (The following items were deleted from the chart) 18:27 18:24 Inserted saline lock: kc3 kc3 Chart Complete MTDD
--- NOTE | 2017-01-20 21:41 | EDDOCDS ---
Physician Documentation [facility] Name: Kenn Kumari Age: 26 yrs Sex: Male : 1990 Arrival Date: 01/18/2017 Time: 16:21 Bed I2 / M2 Private MD: Disposition: 01/18/17 20:14 Discharged to Home/Self Care. Impression: Calculus of ureter, Functional diarrhea. - Condition is Stable. - Discharge Instructions: Food Choices to Help Relieve Diarrhea, Adult, Dehydration, Adult, Kidney Stones. - Prescriptions for Entriken 5- 325 mg Oral Tablet - take 1 tablet by ORAL route every 6 hours As needed MDD: 4 tabs; 20 tablet. Flomax 0.4 mg Oral Capsule, Sust. Release 24 hr - take 1 capsule by ORAL route once daily 1/2 hour following the same meal each day; 30 capsule. ZOFRAN ODT 4 mg - dissolve 1 tablet by ORAL route 4 times per day As needed do not chew, do not swallow whole; 10 tablet. - Medication Reconciliation, Local Pharmacy Hours, Work Release Form - 3 day form. - Follow up: Private Physician; When: Call to arrange an appointment; Reason: Recheck today's complaints, Continuance of care. - Problem is new. - Symptoms have improved. Historical: - Allergies: No known drug Allergies; - Home Meds: 1. none - PMHx: none; - PSHx: none; - Social history: Smoking status: Patient uses tobacco products, heavy tobacco smoker. No barriers to communication noted, The patient speaks fluent Namibian, Speaks appropriately for age. - Family history: Not pertinent. - : The pt / caregiver states he / she is not on anticoagulants. Home medication list is obtained from the patient. - Exposure Risk Screening:: None identified. Vital Signs: 01/18 16:24 BP 142 / 65 RA Sitting (auto/reg); Pulse 96; Resp 20; Temp 98.6; Pulse Ox 100% on R/A; jrd Weight 74.84 kg / 164.99 lbs (R); Height 6 ft. 0 in. (182.88 cm); Pain 7/10; 20:35 BP 106 / 60; Pulse 95; Resp 16; Temp 97.8(O); Pulse Ox 96% on R/A; Pain 0/10; mf4 16:24 Body Mass Index 22.38 (74.84 kg, 182.88 cm) jrd MDM: 17:59 NS 0.9% 1000 ml IV at bolus once ordered. mo1 17:59 Ondansetron 4 mg IVP once ordered. mo1 17:59 ketorolac 30 mg IVP once ordered. mo1 17:59 IV Saline Lock ordered. mo1 17:59 Undress patient appropriately for examination ordered. mo1 18:00 Basic Metabolic Profile Ordered. EDMS 18:00 CBC with Diff Ordered. EDMS 18:00 Lipase Ordered. EDMS 18:00 Liver Profile Ordered. EDMS 18:00 Urinalysis Ordered. EDMS 18:00 NOTHING BY MOUTH+DIET ordered. EDMS 18:46 CBC with Diff Reviewed. mo1 18:46 Urinalysis Reviewed. mo1 18:52 Basic Metabolic Profile Reviewed. mo1 18:52 Lipase Reviewed. mo1 18:53 Liver Profile Reviewed. mo1 18:58 Financial registration complete. gjb 19:08 CT ABD & PELVIS: No Contrast Ordered. EDMS 19:16 [facility] Payment Agreement was scanned into Tile and attached to record. gjb 20:14 Tamsulosin Extended Release 24 hour Capsule 0.4 mg PO once ordered. mo1 20:14 HYDROcodone-acetaminophen 4 pack- 5 mg-325 mg 1 packets PO Per package directions; mo1 Dispense with patient. 1 po q4h prn for pain ordered. 01/19 10:18 T-Sheet-- Draft Copy was scanned into Tile and attached to record. gb 10:19 Radiology Report was scanned into Tile and attached to record. gb Administered Medications: 01/18 18:25 Drug: NS 0.9% 1000 ml [sodium chloride 0.9 % intravenous solution] Route: IV; Rate: kc3 bolus; Site: right antecubital; 18:25 Drug: Ondansetron 4 mg [ondansetron HCl 2 mg/mL intravenous solution (2 mL)] Route: kc3 IVP; Site: right antecubital; 18:26 Drug: ketorolac 30 mg [ketorolac 30 mg/mL (1 mL) injection solution (1 mL)] Route: IVP; kc3 Site: right antecubital; 20:35 Drug: Tamsulosin 0.4 mg [tamsulosin 0.4 mg capsule (1 caps)] Route: PO; mf4 20:36 Drug: HYDROcodone-acetaminophen 4 pack- 1 packets [hydrocodone 5 mg-acetaminophen 325 mf4 mg tablet (1 tabs)] {Co-Signature: slm (Goldie Kramer LPN).} Route: PO; Signatures: Dispatcher [employer] EDMS Brooke Sanchez, Reg Reg gb Jose Middleton,LAURA STAFF WRITER mf4 Rossy Quinonez,RN RN js13 Mariano Granados PA PA mo1 Paresh Vuong, RN RN Caroline Carroll Kelsi RN kc3 Goldie marie The chart was reviewed and I authenticate all verbal orders and agree with the evaluation and treatment provided.Corrections: (The following items were deleted from the chart) 19:10 18:57 CT ABD & PELVIS WITH CONTRAST+CT ordered. EDMS EDMS Attachments: 19:16 [facility] Payment Agreement [facility] 01/19 10:18 T-Sheet-- Draft Copy gb Chart Complete MTDD
== END 2017-01-18 20:39 | disposition home or self-care (01) ==
LOC: M ED 16:21
DX: N20.1 Calculus of ureter (principal); Z72.0 Tobacco use
CPT/HCPCS: 36415; 74176; 80048; 80076; 81001; 83690; 85025; 96374; 96375; 99284; J1885; J2405